=== PATIENT | male | born 1980 | race Caucasian/White ===

== ENCOUNTER 2019-12-07 17:52 | Emergency (ER) | payer OTHER ==
--- NOTE | 2019-12-07 19:41 | EDM.PDOC ---
ED HPI GENERAL MEDICAL PROBLEM - General Chief Complaint: Cardiovascular Problem Stated Complaint: HIGH BP Time Seen by Provider: 12/07/19 18:32 Source of Information: Reports: Patient History Limitations: Reports: No Limitations - History of Present Illness INITIAL COMMENTS - FREE TEXT/NARRATIVE: The patient presents with a cough, congestion and runny nose. He went to the walk in clinic and they noticed his blood pressure was elevated and his heart was beating fast. They sent him over for further management. He denies chest pain or shortness of breath. He has no abdominal pain, nausea or vomiting. He has no swelling or pain in his legs. He does not smoke. He says he has been trying multiple cold preparations to try to get his cough under control. Onset: Gradual Duration: Week(s): (1) Improves with: Reports: None Worsens with: Reports: None Associated Symptoms: Reports: Cough. Denies: Chest Pain, Fever/Chills, Headaches, Nausea/Vomiting, Shortness of Breath - Related Data Allergies Allergy/AdvReac Type Severity Reaction Status Date / Time No Known Allergies Allergy Verified 12/07/19 18:23 Home Meds: Home Meds Azithromycin [Zithromax] 250 mg PO DAILY #6 tab 12/07/19 [Rx] Codeine/Promethazine [Phenergan with Codeine] 5 - 10 ml PO Q6HR PRN #300 ml 02/20 [Rx] Past Medical History - Past Surgical History HEENT Surgical History: Reports: Adenoidectomy, Tonsillectomy Social & Family History - Family History Family Medical History: Noncontributory - Tobacco Use Smoking Status *Q: Never Smoker - Caffeine Use Caffeine Use: Reports: Coffee, Soda - Recreational Drug Use Recreational Drug Use: No ED ROS GENERAL - Review of Systems Review Of Systems: See Below Constitutional: Reports: No Symptoms HEENT: Reports: No Symptoms Respiratory: Reports: Cough. Denies: Shortness of Breath Cardiovascular: Reports: No Symptoms Endocrine: Reports: No Symptoms GI/Abdominal: Reports: No Symptoms : Reports: No Symptoms Musculoskeletal: Reports: No Symptoms ED EXAM, GENERAL - Physical Exam Exam: See Below Exam Limited By: No Limitations General Appearance: Alert, No Apparent Distress Ears: Normal External Exam, Normal Canal, Normal TMs Nose: Normal Inspection Head: Atraumatic, Normocephalic Neck: Normal Inspection Respiratory/Chest: No Respiratory Distress, Lungs Clear, Normal Breath Sounds Cardiovascular: Regular Rate, Rhythm, No Edema, No Murmur GI/Abdominal: Soft, Non-Tender, No Organomegaly, No Mass Back Exam: Normal Inspection Extremities: Normal Inspection Course - Vital Signs Last Recorded V/S: Last Vital Signs Temp 99.0 F 12/07/19 18:20 Pulse 129 H 12/07/19 18:20 Resp 14 12/07/19 18:20 BP 192/127 H 12/07/19 18:20 Pulse Ox - Orders/Labs/Meds Orders: Active Orders 24 hr Category Date Time Status EKG Documentation Completion [RC] ASDIRECTED Care 12/07/19 18:29 Active CXR [Chest 2V] [CR] Stat Exams 12/07/19 18:47 Taken EKG 12 Lead [EK] Stat Ther 12/07/19 18:28 Ordered - Re-Assessments/Exams Free Text/Narrative Re-Assessment/Exam: 12/07/19 19:38 I ordered a CXR and influenza. His influenza is negative. His CXR shows nothing acute such as a pneumonia. I will get him on a z-sugar and phenergan with codeine. I will have him stop using the over counter meds. Departure - Departure Time of Disposition: 19:45 Disposition: Home, Self-Care 01 Condition: Good Clinical Impression: Bronchitis Prescriptions: Codeine/Promethazine [Phenergan with Codeine] 5 - 10 ml PO Q6HR PRN #300 ml PRN Reason: Cough Azithromycin [Zithromax] 250 mg PO DAILY #6 tab Referrals: PCP,None [Primary Care Provider] - Amy Muñoz PA-C [Physician [facility]] - 1 Week Additional Instructions: Take the zithromax 2 pills on day 1 and then 1 pill on day 2 through 5. Take the phenergan with codeine every 6 hours as needed for a cough. Do not drive when taking this medication. It can make you drowsy. Take tylenol or motrin for any pain or fever. Avoid any over the counter cold medicines. I think they are elevating your blood pressure and heart rate. Sepsis Event Note - Evaluation Sepsis Screening Result: No Definite Risk - Focused Exam Vital Signs: Vital Signs Temp Pulse Resp BP 12/07/19 18:20 99.0 F 129 H 14 192/127 H Date Exam was Performed: 12/07/19 Time Exam was Performed: 19:35 - My Orders Last 24 Hours: My Active Orders 12/07/19 18:28 EKG 12 Lead [EK] Stat 12/07/19 18:29 EKG Documentation Completion [RC] ASDIRECTED 12/07/19 18:47 CXR [Chest 2V] [CR] Stat - Assessment/Plan Last 24 Hours: My Active Orders 12/07/19 18:28 EKG 12 Lead [EK] Stat 12/07/19 18:29 EKG Documentation Completion [RC] ASDIRECTED 12/07/19 18:47 CXR [Chest 2V] [CR] Stat
--- NOTE | 2019-12-08 07:43 | CR ---
Chest: Two views of the chest were obtained. Comparison: No previous chest x-ray. Heart size is normal. Mild tortuosity of the thoracic aorta is seen. Lungs are clear with no acute parenchymal change. Bony structures are unremarkable. Impression: 1. Nothing acute is appreciated on two-view chest x-ray. Diagnostic code #1 This report was dictated in [place] Standard Time
== END 2019-12-07 19:54 | disposition home or self-care (01) ==
LOC: JD.ED 17:52
DX: J40 Bronchitis, not specified as acute or chronic (principal)
CPT/HCPCS: 71046; 71046-26; 87804; 93005; 99283; 99285-25

== ENCOUNTER 2021-08-16 11:28 | Emergency (ER) | payer OTHER ==
[2021-08-16] MEDS ORDERED: Sodium Chloride 0.9% 10 ML Syringe FLUSH PRN (12:31)
[2021-08-16] MEDS ORDERED: Sodium Chloride 0.9% 1,000 ML IV STA (12:59)
--- NOTE | 2021-08-16 13:39 | EDM.PDOC ---
ED HPI GENERAL MEDICAL PROBLEM - General Chief Complaint: Cardiovascular Problem Stated Complaint: COVID+ RHB Time Seen by Provider: 08/16/21 12:20 Source of Information: Reports: Patient, RN Notes Reviewed History Limitations: Reports: No Limitations - History of Present Illness INITIAL COMMENTS - FREE TEXT/NARRATIVE: Patient is a 40-year-old male presenting to the emergency department with complaints of rapid heart rate. Reports he was diagnosed Covid positive on Friday of this week. He is a very mild symptoms including nasal congestion with rhinorrhea, mild cough, loss of taste and smell. He is fully vaccinated with Pfizer, however he was due to receive his booster today. Denies any significant chest pain or shortness of breath. States today he was standing at the sink when he felt his heart began to race. He checked his blood pressure and his pulse was found to be 136. He contacted his primary care provider who recommended he come to the ER for evaluation. Patient denies any fever, chills, nausea, vomiting, or diarrhea. Reports history of type II diabetes and hypertension. - Related Data Allergies Allergy/AdvReac Type Severity Reaction Status Date / Time No Known Allergies Allergy Verified 12/07/19 18:23 Home Meds: Home Meds Rosuvastatin [Crestor] 20 mg PO BEDTIME 08/16/21 [History] Ubidecarenone [COQ-10] 50 mg PO DAILY 08/16/21 [History] lisinopriL [Lisinopril] 20 mg PO BEDTIME 08/16/21 [History] metFORMIN [Glucophage XR] 1,000 mg PO DAILY 08/16/21 [History] Past Medical History - Infectious Disease History Infectious Disease History: Reports: Novel Coronavirus - Past Surgical History HEENT Surgical History: Reports: Adenoidectomy, Tonsillectomy Social & Family History - Family History Family Medical History: No Pertinent Family History - Tobacco Use Tobacco Use Status *Q: Never Tobacco User - Caffeine Use Caffeine Use: Reports: Coffee, Soda ED ROS GENERAL - Review of Systems Review Of Systems: Comprehensive ROS is negative, except as noted in HPI. ED EXAM, GENERAL - Physical Exam Exam: See Below Exam Limited By: No Limitations General Appearance: Alert, WD/WN, No Apparent Distress Respiratory/Chest: No Respiratory Distress, Lungs Clear, Normal Breath Sounds, No Accessory Muscle Use, Chest Non-Tender Cardiovascular: Normal Peripheral Pulses, Regular Rate, Rhythm, No Edema, No Gallop, No JVD, No Murmur, No Rub, Tachycardia GI/Abdominal: Normal Bowel Sounds, Soft, Non-Tender, No Organomegaly, No Distention, No Abnormal Bruit, No Mass Neurological: Alert, Oriented, CN II-XII Intact, Normal Cognition, Normal Gait, Normal Reflexes, No Motor/Sensory Deficits Psychiatric: Normal Affect, Normal Mood Skin Exam: Warm, Dry, Intact, Normal Color, No Rash Course - Vital Signs Last Recorded V/S: Last Vital Signs Temp 97.9 F 08/16/21 12:24 Pulse 102 H 08/16/21 15:45 Resp 18 08/16/21 15:45 BP 128/78 08/16/21 15:45 Pulse Ox 99 08/16/21 15:45 - Orders/Labs/Meds Orders: Active Orders 24 hr Category Date Time Status Peripheral IV Insertion Adult [OM.PC] Stat Oth 08/16/21 12:31 Ordered Labs: Laboratory Tests 08/16/21 08/16/21 Range/Units 12:15 12:15 WBC 3.19 L (4.23-9.07) K/mm3 RBC 5.39 (4.63-6.08) M/mm3 Hgb 16.4 (13.7-17.5) gm/dl Hct 47.2 (40.1-51.0) % MCV 87.6 (79.0-92.2) fl MCH 30.4 (25.7-32.2) pg MCHC 34.7 (32.2-35.5) g/dl RDW Std Deviation 41.0 (35.1-43.9) fL Plt Count 197 (163-337) K/mm3 MPV 9.6 (9.4-12.3) fl Neut % (Auto) 61.8 (34.0-67.9) % Lymph % (Auto) 18.2 L (21.8-53.1) % [place] % (Auto) 14.7 H (5.3-12.2) % Eos % (Auto) 4.4 (0.8-7.0) Baso % (Auto) 0.3 (0.1-1.2) % Neut # (Auto) 1.97 (1.78-5.38) K/mm3 Lymph # (Auto) 0.58 L (1.32-3.57) K/mm3 [place] # (Auto) 0.47 (0.30-0.82) K/mm3 Eos # (Auto) 0.14 (0.04-0.54) K/mm3 Baso # (Auto) 0.01 (0.01-0.08) K/mm3 Sodium 140 (136-145) mEq/L Potassium 3.9 (3.5-5.1) mEq/L Chloride 103 (98-107) mEq/L Carbon Dioxide 22 (21-32) mEq/L Anion Gap 18.9 H (5-15) BUN 14 (7-18) mg/dL Creatinine 1.1 (0.7-1.3) mg/dL Est Cr Clr Drug Dosing 81.79 mL/min Estimated GFR (MDRD) > 60 (>60) mL/min BUN/Creatinine Ratio 12.7 L (14-18) Glucose 144 H (70-99) mg/dL Calcium 9.2 (8.5-10.1) mg/dL Total Bilirubin 0.5 (0.2-1.0) mg/dL AST 28 (15-37) U/L ALT 43 (16-63) U/L Alkaline Phosphatase 59 (46-116) U/L Troponin I < 0.017 (0.00-0.056) ng/mL C-Reactive Protein <0.2 (<1.0) mg/dL Total Protein 7.8 (6.4-8.2) g/dl Albumin 4.2 (3.4-5.0) g/dl Globulin 3.6 gm/dL Albumin/Globulin Ratio 1.2 (1-2) Meds: Medications Discontinued Medications Generic Name Dose Route Start Last Admin Trade Name Freq PRN Reason Stop Dose Admin Sodium Chloride 1,000 mls @ 999 mls/hr 08/16/21 12:59 08/16/21 13:37 Normal Saline IV 08/16/21 13:59 999 mls/hr NOW STA Administration Sodium Chloride 10 ml 08/16/21 12:31 08/16/21 12:54 Sodium Chloride 0.9% 10 Ml Syringe FLUSH 10 ml ASDIRECTED PRN Administration Keep Vein Open - Re-Assessments/Exams Free Text/Narrative Re-Assessment/Exam: Patient is a 40-year-old male presenting to the emergency department with complaints of rapid heart rate with a known diagnosis of COVID-19. Reports very mild symptoms. He did receive 2 Pfizer injections back in January, however he was due to receive his booster today. Reports palpitations with documented heart rate at home of 136. On arrival to ER, heart rate was initially 120, however at the time of my exam was 105-115. Heart rate is regular S1-S2. EKG shows sinus rhythm. Patient denies any significant chest pain. I have ordered blood work, chest x-ray, 08/16/21 1235 Hematology significant for WBC low at 3.19 and a gap elevated 18.9. Otherwise unremarkable. Troponin is undetectably low. I have ordered a 1 L bolus of normal saline to be given. Chest x-ray is pending. 08/16/21 15:32 Chest x-ray is unremarkable. Heart rate has improved to the upper 90s to low 100s after 1 L of IV fluids. Patient will be discharged home. Discharge instructions as document. Departure - Departure Time of Disposition: 15:32 Disposition: Home, Self-Care 01 Condition: Good Clinical Impression: Tachycardia, COVID-19 Instructions: COVID-19 Referrals: Janell Arredondo PA-C [Primary Care Provider] - Forms: ED Department Discharge Additional Instructions: You were seen in the emergency department today for evaluation of rapid heart rate with a known diagnosis of COVID-19. Work-up included blood work, EKG, chest x-ray. Results of your work-up did show an elevated heart rate and mild dehydration but were otherwise unremarkable. While in the ER, you received a liter of IV fluids. This did improve your heart rate. Recommend that you go home and rest. Ensure that you are taking an adequate amount of fluid. Should you experience any new or worsening symptoms, please do not hesitate to return to the emergency department for reevaluation. - My Orders Last 24 Hours: My Active Orders 08/16/21 12:31 Peripheral IV Insertion Adult [OM.PC] Stat - Assessment/Plan Last 24 Hours: My Active Orders 08/16/21 12:31 Peripheral IV Insertion Adult [OM.PC] Stat
--- NOTE | 2021-08-16 13:53 | CR ---
Chest: Frontal view of the chest was obtained. Comparison: Prior chest x-ray of 12/07/19. Heart size and mediastinum are normal. Lungs are clear with no acute parenchymal change. No acute osseous abnormality is appreciated. Impression: 1. Nothing acute is seen on frontal chest x-ray. Diagnostic code #1
== END 2021-08-16 15:45 | disposition home or self-care (01) ==
LOC: JD.ED 11:28
DX: R00.0 Tachycardia, unspecified (principal); U07.1 COVID-19; Z79.84 Long term (current) use of oral hypoglycemic drugs; Z79.899 Other long term (current) drug therapy
CPT/HCPCS: 36415; 71045; 80053; 84484; 85025; 86140; 93005; 99285; J7030

== ENCOUNTER 2023-03-21 03:35 | Emergency (ER) | payer OTHER ==
[2023-03-21] MEDS ORDERED: Sodium Chloride 0.9% 10 ML Syringe FLUSH PRN (04:01)
[2023-03-21] MEDS ORDERED: Sodium Chloride 0.9% 1,000 ML IV SCH (04:15)
[2023-03-21 04:49] LABS: BASOPHILS ABSOLUTE AUTO 0.02 K/mm3 (0.01-0.08); BASOPHILS PERCENT AUTO 0.3 % (0.1-1.2); EOSINOPHILS ABSOLUTE AUTO 0.13 K/mm3 (0.04-0.54); EOSINOPHILS PERCENT AUTO 1.9 (0.8-7.0); HEMATOCRIT 45.1 % (40.1-51.0); IMMATURE GRAN ABSOLUTE AUTO 0.03 K/mm3 (0.00-0.10); IMMATURE GRAN PERCENT AUTO 0.4 % (<=1.0); LYMPHOCYTES ABSOLUTE AUTO 1.09 K/mm3 (1.32-3.57); LYMPHOCYTES PERCENT AUTO 15.6 % (21.8-53.1); MEAN CORPUSCULAR HEMOGLOBIN 30.2 pg (25.7-32.2); MEAN CORPUSCULAR HGB CONC 35.5 g/dl (32.2-35.5); MEAN CORPUSCULAR VOLUME 85.1 fl (79.0-92.2); MEAN PLATELET VOLUME 8.9 fl (9.4-12.3); MONOCYTES ABSOLUTE AUTO 0.69 K/mm3 (0.30-0.82); MONOCYTES PERCENT AUTO 9.9 % (5.3-12.2); NEUTROPHILS ABSOLUTE AUTO 5.03 K/mm3 (1.78-5.38); NEUTROPHILS PERCENT AUTO 71.9 % (34.0-67.9); PLATELET COUNT,PLT 249 K/mm3 (163-337); WHITE BLOOD CELL COUNT,WBC 6.99 K/mm3 (4.23-9.07)
[2023-03-21 05:34] LABS: A/G RATIO 1.3 (1-2); ALBUMIN 3.9 g/dl (3.4-5.0); ANION GAP 15.5 (5-15); BILIRUBIN TOTAL 1.3 mg/dL (0.2-1.0); CALCIUM 9.4 mg/dL (8.5-10.1); EST CRCL DRUG DOSING (CG) 88.13 mL/min; POTASSIUM,K 3.5 mEq/L (3.5-5.1)
[2023-03-21 05:44] LABS: CORONAVIRUS COVID-19 NAA NEGATIVE (NEGATIVE); INFLUENZA A NAA NEGATIVE (NEGATIVE); RESPIRATORY SYNCYTIAL VIR NAA NEGATIVE (NEGATIVE)
== END 2023-03-21 06:12 | disposition home or self-care (01) ==
LOC: JD.ED 03:35
DX: J06.9 Acute upper respiratory infection, unspecified (principal); I10 Essential (primary) hypertension; E78.00 Pure hypercholesterolemia, unspecified; E11.9 Type 2 diabetes mellitus without complications; Z86.16 Personal history of COVID-19; Z79.899 Other long term (current) drug therapy; Z79.84 Long term (current) use of oral hypoglycemic drugs; Z20.822 Contact with and (suspected) exposure to COVID-19
CPT/HCPCS: 0241U; 36415; 71045; 80053; 84484; 85025; 93005; 99285; 93010; 99283